=== PATIENT | male | born 1990 | race Hispanic/Latino ===

== ENCOUNTER 2023-08-07 22:18 | Emergency (ER) | payer OTHER ==
[2023-08-07] MEDS ORDERED: Diazepam 10 MG/2 ML SYRINGE ONE (22:32)
== END 2023-08-08 00:40 ==
LOC: EEVIPCON 22:18 → NAV ERS 22:18
DX: R56.9 Unspecified convulsions (principal)
CPT/HCPCS: 96374; J3360